=== PATIENT | female | born 1955 | race Caucasian/White ===

== ENCOUNTER 2017-09-22 09:25 | Emergency (ER) | payer OTHER ==
[~2017-09-22] VITALS: Ht 175.3 cm; Wt 72.6 kg
--- NOTE | 2017-09-22 09:30 | NUR ---
DR ROSALVA BLACKWELL AT PT BEDSIDE AT THIS TIME
[2017-09-22] MEDS ORDERED: ROSU40TA PO (09:32)
[2017-09-22] MEDS ORDERED: LOPRESSER ONE (09:34)
--- NOTE | 2017-09-22 09:36 | NUR ---
ARRIVAL PATIENT ARRIVED TO 2 AMBULATORY FOR THE RESPIRATORY DEPARTMENT, PATIENT WAS WORKING WHEN SHE BECAME SHORT OF BREATH AND HER HEART BEGAN TO RACE, HAD CO WORKER PERFOMR AND EKG, BROUGHT TO ED FOR FURTHER EVAL BY DOCTOR BLACKWELL.
[2017-09-22] MEDS ORDERED: LOPRESSER IVP STA (09:40)
--- NOTE | 2017-09-22 09:42 | PCM.EKG ---
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
[2017-09-22 10:02] LABS: BASOPHIL % 0.2 % (0.0-0.2); EOSINOPHIL % 0.6 % (0.0-5.0); HEMOGLOBIN 12.7 g/dL (12.0-15.0); LYMPHOCYTES # 1.9 10^3/uL (1.0-4.8); LYMPHOCYTES % 36.4 % (24.0-44.0); MEAN CELL HGB 31.8 pg (26-34); MEAN CELL HGB CONCENTRATION 33.5 g/dL (33-37); MONOCYTES # 0.6 10^3/uL (0.3-0.8); MONOCYTES % 10.8 % (5.0-12.0); NEUTROPHIL # 2.6 10^3/uL (1.8-7.7); RED CELL DISTRIBUTION WIDTH 12.6 % (11.5-14.5); WHITE BLOOD CELL 5.1 10^3/uL (4.5-11.0)
--- NOTE | 2017-09-22 10:02 | DIREP ---
PROCEDURE:CHEST 1 VIEW COMPARISON:None. INDICATIONS:SVT FINDINGS: LUNGS/PLEURA:No significant pulmonary parenchymal abnormalities. No effusions. VASCULATURE:Normal. Unremarkable pulmonary vasculature. CARDIAC:Normal. No cardiac silhouette abnormality or cardiomegaly. MEDIASTINUM:Normal. No visible mass or adenopathy. BONES:Normal. No fracture or visible bony lesion. OTHER:Bilateral breast implants CONCLUSION:No acute disease. Dictated by: Jose Gallegos MD on 09/22/2017 at 09:57 AM
--- NOTE | 2017-09-22 10:07 | PCM.EKG ---
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
[2017-09-22 10:28] LABS: ALANINE AMINOTRANSFERASE 20 U/L (12-78); ALKALINE PHOSPHATASE 78 U/L (50-136); ASPARTATE AMINO TRANSFERASE 17 U/L (0-35); CALCIUM 8.8 mg/dL (8.4-10.5); GLUCOSE 102 mg/dL (70-110)
[2017-09-22 10:57] LABS: CARBON DIOXIDE 22.6 mmol/L (20.0-32)
--- NOTE | 2017-09-22 11:05 | NUR ---
IV PT IV DCD WITH CATH IN TACT. NO COMPLICATIONS AND DRESSING APPLIED
[2017-09-22 11:06] VITALS: BP 126/70
--- NOTE | 2017-09-22 22:57 | HPH ---
ADMIT DATE: EMERGENCY ROOM LEVEL 4 CHIEF COMPLAINT: Rapid irregular heartbeat. 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 She presented to the ER with a rapid irregular heartbeat. She denied any history of any chest pain or any unusual shortness of breath. Her blood pressure was 150/100 mmHg. 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 Carotid massage initially it down, and subsequently, she did break into a regular sinus rhythm with sinus tachycardia with a rate of [address]-T wave changes were noted. Her blood pressure was 150/100 mmHg and was given metoprolol 5 mg IV followed by metoprolol tartrate 25 mg twice a day. Her lab data were all acceptable. No evidence of any chest pain and troponin was less than 0.02. Cardiac evaluation for an underlying ischemic substrate was considered, and she will have an echo and a Lexiscan done on September 23, 2017 in the hospital. ALLERGIES: NONE KNOWN. MEDICATIONS: The medications that she is on are Crestor 40 mg once a day, she is on Zoloft 100 mg once a day. PAST MEDICAL HISTORY: History of dyslipidemia, cholecystectomy, hysterectomy. No other major medical illnesses. SOCIAL HISTORY: She has about a 15-awtu-yhea history of smoking and moderate ethanol consumption with 3 to 4 hard liquor drinks a day and would be considered as moderate alcohol abuse. FAMILY HISTORY: Positive for hypertension. No other history of any significant coronary events in the family. PHYSICAL EXAMINATION: GENERAL: She is alert, awake, oriented. VITAL SIGNS: Her BMI was 23.6, weight 72 kilograms, pulse 150, 160, and subsequently 100 to 110 after her carotid was reverted back into regular sinus rhythm, blood pressure 150/100 mmHg, and respirations 18. HEENT: Unremarkable. NECK: No JVD and no carotid bruits. PULMONARY: The lungs showed poor air entry. HEART: S1 and S2 normal. Tachycardia noted. ABDOMEN: Soft and nontender. No organomegaly. EXTREMITIES: Distal pulses fairly well felt. LABORATORY DATA: Intact lab data, showed a normal CBC, 12.7 hemoglobin, electrolytes were normal, 157 ProBNP, and H. Pylori was negative. IMAGING STUDIES: Chest x-ray was unremarkable. IMPRESSION: Supraventricular tachycardia, AVNRT ST depression, Risk factors for CAD with severe dyslipidemia, hypertension, and 66-btit-vobk history of smoking. RECOMMENDATIONS: At this time, the patient will go home on metoprolol tartrate 25 mg twice a day, continue her Crestor 40 mg once a day. We will have an echo and a Lexiscan on September 23, 2017, along with a fasting lipid profile and a CRP, and we will see her back in the clinic. Laxmichand MD Yazmin DR: RAFAELA/cordell JOB# [id number] LIUDMILA
== END 2017-09-22 11:06 ==
LOC: ER 09:25
DX: I47.1 Supraventricular tachycardia (principal); E78.5 Hyperlipidemia, unspecified; Z87.891 Personal history of nicotine dependence
CPT/HCPCS: 36415; 71010; 80053; 82550; 82553; 83880; 84484; 85025; 85379; 85610; 86677; 93005 ×2; 96374; 99285; J3490

== ENCOUNTER → 2017-09-23 | Outpatient (CLI) | payer OTHER ==
[~2017-09-23] VITALS: Ht 172.7 cm; Wt 72.6 kg
[~2017-09-23] MED LIST: AMINOPHYLLINE IV ONE; LEXISCAN IV STA; ROSU40TA PO
--- NOTE | 2017-09-23 21:16 | STRESS ---
DATE OF SERVICE: EXERCISE AND LEXISCAN PERFUSION STUDY INDICATIONS: The patient is a 62-year-old female, height about 5 feet and 9 inches, weight approximately 170 pounds, with a history of hypertension, SVT, AVNRT, ST depression on 12-lead EKG during AVNRT, a 54-kykv-sdkx history of smoking, to assess for an ischemic substrate. Physical activity is normal. 12-LEAD EKG: Regular sinus rhythm, within normal limits, heart rate 57, resting heart rate 57. MEDICATIONS: Metoprolol 25 mg twice a day, Crestor 40 mg once a day, Zoloft 100 mg once a day, baby aspirin 81 mg once a day. PROCEDURE: The patient underwent 1 minute and 50 seconds on a regular Terry protocol and had a heart rate of 92, blood pressure 148/84 mmHg, and a complaint of marked dyspnea was given Lexiscan 0.4 mg IV over 15 seconds, had severe reactive airway component, and after injecting Cardiolite, reversal of side effects of Lexiscan was done with 100 mg of aminophylline IV. Resting images obtained with 11.58 mCi of Cardiolite. Post-Lexiscan images obtained with 31.7 mCi of Cardiolite injection. Abnormal myocardial perfusion scan with abnormal TID of 1.18 with small septal and apicoinferior hypoperfusion, and post-exercise and Lexiscan perfusion images with reperfusion noted, and rest images, LV ejection fraction of 63%, intact perfusion in the lateral wall and also in part of the anterior wall. IMPRESSION: She has a 04-mgit-dkeo history of smoking with dyslipidemia. In view of multiple risk factors with symptoms of SVT and ST depression during SVT of significant degree, suggests a cardiac catheterization to delineate the coronary anatomy. Laxmichand MD Yazmin DR: RAFAELA/cordell JOB# [id number] LIUDMILA
--- NOTE | 2017-09-28 18:24 | ECHO ---
DATE OF SERVICE: 09/23/2017 INDICATIONS: History of SVT, ST depression, hypertension. Assess for LV function. PRIMARY PHYSICIAN: Elaine Arce MD Mitral valve shows normal mitral valve opening, normal E:A ratio, normal aorta, normal aortic valve opening, mild tricuspid regurgitation, normal right ventricular size and mild right atrial enlargement and 4-chamber view to 4.28 cm and normal left atrial size. Left ventricle appears to be normal around 4.61 cm. End-diastolic dimension of 2.97 cm, end-systolic dimension with top normal wall thickness of posterior wall, no concentric left ventricular hypertrophy and normal LV contractility, 55% ejection fraction. IVC appears to be top normal size, slightly dilated; hence, no evidence of any significant LV systolic dysfunction except some IVC dilatation is noted. Elaine Arce MD DR: RAFAELA/cordell JOB# [id number]
== END | disposition home or self-care (01) ==
LOC: RAD 09:19
PROVIDERS: ATTEND Specialist
DX: I10 Essential (primary) hypertension (principal); I47.1 Supraventricular tachycardia
CPT/HCPCS: 78452; 93017; 93307; A9500; J0280; J2785

== ENCOUNTER → 2017-09-24 | Outpatient (CLI) | payer OTHER ==
[~2017-09-24] MED LIST changes: -AMINOPHYLLINE IV ONE; -LEXISCAN IV STA
[2017-09-26 07:32] LABS: CHOLESTEROL 200 mg/dL (120-240); HDL CHOLESTEROL 100 mg/dL (32-96)
== END | disposition home or self-care (01) ==
LOC: RT 10:49
PROVIDERS: ATTEND Specialist
DX: J44.9 Chronic obstructive pulmonary disease, unspecified (principal)
CPT/HCPCS: 36415; 80061; 86140; 94060

== ENCOUNTER 2017-09-30 02:28 | Day surgery (SDC) | payer OTHER ==
[2017-09-29 10:40] VITALS: BP 125/56
[2017-09-30] VITALS (19 sets, daily range): BP systolic 82–146; BP diastolic 48–79
[~2017-09-30] VITALS: Ht 180.3 cm; Wt 82.6 kg
[~2017-09-30 02:28] MED LIST changes: +ASPI-484 PO; +CETI10TA24 PO; +METO25TA4 PO; +SERT100T PO; +VARE1TAB20 PO
[2017-09-30] MEDS ORDERED: NS 1000ML 1,000 ML ONE ×2 (05:11→06:38)
[2017-09-30] MEDS ORDERED: VALIUM PO ONE (06:00)
[2017-09-30] MEDS ORDERED: NS 1000ML 1,000 ML IV SCH (06:00)
[2017-09-30] MEDS ORDERED: PHENERGAN PO ONE (06:00)
[2017-09-30] MEDS ORDERED: PHENERGAN ONE (06:20)
[2017-09-30] MEDS ORDERED: VALIUM ONE (06:20)
[2017-09-30] MEDS ORDERED: SUBLIMAZE ONE ×2 (06:38→12:41)
[2017-09-30] MEDS ORDERED: HEPARIN ONE ×2 (06:38→06:39)
[2017-09-30] MEDS ORDERED: XYLOCAINE ONE (06:39)
[2017-09-30] MEDS ORDERED: VERSED ONE (06:39)
[2017-09-30] MEDS ORDERED: NITROGLYCERIN 25MG/D5W 250ML 250 ML IV ONE (06:39)
[2017-09-30] MEDS ORDERED: APRESOLINE ONE (07:46)
[2017-09-30] MEDS ORDERED: EPINEPHRINE ONE (07:47)
[2017-09-30] MEDS ORDERED: NS FLUSH ONE (09:09)
--- NOTE | 2017-09-30 10:03 | [facility] ---
DATE OF SERVICE: 09/30/2017 PRECATHETERIZATION DIAGNOSES: Abnormal myocardial perfusion scan, SVT, AVNRT, hypertension on beta blockers, lipids normal, HDL of 100, 45-50 pack-year history of smoking. POSTCATHETERIZATION DIAGNOSES: Left main is a fair size vessel, fully patent, type 3 LAD fully patent, the LAD encircles the apex and distal terminal, small caliber of the vessel is noted. Circumflex is a fair size vessel, fully patent, small diminutive nondominant RCA patent, normal LV contractility, ejection fraction of 60%. ANESTHESIA: 2% lidocaine. PREOPERATIVE MEDICATIONS: Phenergan 50 mg p.o., Valium 2.5 mg p.o., Versed 2 mg IV, fentanyl 25 mcg IV. ANTICOAGULATION: Heparin 2000 units intra-arterially, 2000 units in the flush solution, 1000 units in the dye solution. Dye Omnipaque, total amount is 68 mL. CATHETERS: JL4 6-Macedonian, JR4 6-Macedonian, and 6-Macedonian angled pigtail catheter. ARTERIAL TIME: 5 minutes. FLUOROSCOPY TIME: 2.3 minutes. PROCEDURES: Left heart catheterization, bilateral selective coronary arteriography, left ventriculography via right femoral Mohsen approach. NARRATION OF PROCEDURE: Under local anesthesia, the right femoral artery was punctured using open needle technique, and 6-Macedonian Cordis sheath was introduced into the femoral artery. Side port of the sheath was used for continuous monitoring of femoral arterial pressure. Subsequently, JL4 6-Macedonian left Mohsen coronary catheter was introduced over a guidewire and navigated across the ascending aorta, and selective cannulation of left coronary artery was achieved. Left coronary arteriography was performed in DOMINICAN and CASTORENA projections using craniocaudal angulations for adequate visualization of all the branches. This catheter was then exchanged with JR4 6-Macedonian right coronary catheter which was manipulated, and selective cannulation of right coronary artery was achieved. Right coronary arteriography was performed in DOMINICAN and AP projections. Right coronary catheter was then exchanged with 6-Macedonian angled pigtail catheter which was navigated across the aortic valve. Hemodynamics were measured, and left ventriculography was performed in 30-degree CASTORENA projection using 35 mL of Isovue at 12 mL/sec at 600 PSI. Patient tolerated the procedure well. HEMODYNAMICS: LVEDP is 15 mm, LV pressure 120/15. Femoral artery pressure 134/52 with a mean of 70. No gradient across the aorta. FINAL CONCLUSION: Normal coronary angiogram, diminutive right coronary artery, AVNRT, hypertension, history of smoking, COPD, reactive airway component. RECOMMENDATIONS: Continue Breo Ellipta 1 puff daily, stop smoking, metoprolol 25 mg twice a day, aspirin 81 mg once a day and will make arrangements with Dr. Oliveros for ablation of AVNRT. Laxmichand MD Yazmin DR: RAFAELA/cordell JOB# [id number]
[2017-09-30] MEDS ORDERED: NORCO 5MG PO ONE ×2 (11:20→11:23)
[2017-09-30] MEDS ORDERED: SUBLIMAZE IV ONE (12:30)
[2017-09-30] MEDS ORDERED: SUBLIMAZE IM ONE (12:40)
== END 2017-09-30 14:00 | disposition home or self-care (01) ==
LOC: SDC 02:28
PROVIDERS: ATTEND Specialist
DX: I47.1 Supraventricular tachycardia (principal); E78.00 Pure hypercholesterolemia, unspecified; E78.5 Hyperlipidemia, unspecified; J44.9 Chronic obstructive pulmonary disease, unspecified; E66.3 Overweight; Z68.25 Body mass index [BMI] 25.0-25.9, adult; Z85.820 Personal history of malignant melanoma of skin; Z90.710 Acquired absence of both cervix and uterus; Z90.49 Acquired absence of other specified parts of digestive tract; Z98.890 Other specified postprocedural states; Z79.899 Other long term (current) drug therapy; Z87.891 Personal history of nicotine dependence; F10.10 Alcohol abuse, uncomplicated; Z82.49 Family history of ischemic heart disease and other diseases of the circulatory system
CPT/HCPCS: 93458; 99152; C1894 ×3; J0171; J0360; J1644 ×3; J2250; J3010 ×2; J3490; J7030 ×3; Q9967

== ENCOUNTER → 2021-07-13 | Day surgery (SDC) | payer MEDICARE ==
[2021-07-10 10:37] VITALS: BP 128/76
--- NOTE | 2021-07-10 11:36 | DIREP ---
PROCEDURE:CHEST 2 VIEWS COMPARISON:[facility], CR, XRAY CHEST SINGLE VW, 09/22/2017, 09:41 AM. INDICATIONS:PRE-OP HEART CATH, ABNORMAL STRESS TEST FINDINGS: LUNGS/PLEURA:There is pulmonary hyperinflation consistent with underlying COPD. No focal consolidation. No effusions. VASCULATURE:Normal. Unremarkable pulmonary vasculature. CARDIAC:Normal. No cardiac silhouette abnormality or cardiomegaly. MEDIASTINUM:Normal. No visible mass or adenopathy. BONES:Mild ventral spondylosis of the thoracic spine OTHER:Bilateral breast implants CONCLUSION:Emphysema. No active cardiopulmonary disease process Dictated by: Carlo Reyes M.D. on 07/10/2021 at 11:33 AM
[~2021-07-13] VITALS: Ht 180.3 cm; Wt 77.1 kg
[2021-07-13] VITALS (9 sets, daily range): BP systolic 130–171; BP diastolic 64–97
[~2021-07-13] MED LIST changes: -ASPI-484 PO; +ASPI-485 PO; -CETI10TA24 PO; +CETI10TA77 PO; +ESTR5VIA IM; +HEPARIN ONE; +LOSA50TA14 PO; +METO50TA6 PO; +NS 1000ML 1,000 ML IV SCH; +PHENERGAN PO ONE; +SUBLIMAZE ONE; +VALIUM PO ONE; +VERSED ONE; +XYLOCAINE ONE
--- NOTE | 2021-07-13 22:51 | [facility] ---
DATE OF SERVICE: 07/13/2021 DICTATOR NAME: Elaine Arce MD HEART CATHETERIZATION REPORT IDENTIFICATION: A 65-year-old female. PRECATHETERIZATION DIAGNOSES: Abnormal myocardial perfusion scan with a TID of 1.49 with mild global reperfusion abnormality in a vertical long axis view with history of heavy smoking. Preoperative cardiovascular evaluation before undertaking metastatic cancer surgery with mets in the liver and history of abdominal cancer, needs surgery, history of hypertension, hypertensive heart disease, history of premature ventricular contractions. POSTCATHETERIZATION DIAGNOSES: Small caliber left main fully patent. LAD is tortuous and small caliber fully patent. No flow obstruction documented. Circumflex dominant system, fully patent. Small diminutive right coronary artery fully patent. Left ventricle is normal in size with mild global hypokinesis, ejection fraction of 48%. ANESTHESIA: 2% lidocaine. PREOPERATIVE MEDICATIONS: Phenergan 50 mg p.o., Valium 2.5 mg p.o., fentanyl 50 mcg IV, Versed 1 mg IV. ANTICOAGULATION: Heparin 2000 units intra-arterially, 2000 units in the flush solution, 1000 units in dye solution. DYE USED: Omnipaque. Total amount of dye used 65 mL. CATHETERS: JL4 6-Angolan, JR4 6-Angolan, 6 Angolan angled pigtail catheter. ARTERIAL TIME: 6 minutes. FLUOROSCOPY TIME: 1.7 minutes. PROCEDURE: Left heart catheterization, bilateral selective coronary arteriography, left ventriculography by right femoral Mohsen approach. DESCRIPTION OF PROCEDURE: Under local anesthesia, right femoral artery was punctured percutaneously by arterial needle, guide wire passed in right femoral artery, 6-Angolan Cordis sheath introduced, side port of the sheath used for femoral arterial pressure monitoring. Sheath anchored with suture. Left Mohsen catheter introduced over guide wire into ascending aorta left coronary artery cannulated and left coronary angiography performed in GAMBIAN and CASTORENA projections with craniocaudal applications to visualize all branches. Left catheter exchanged for right coronary catheter and right coronary angiography performed in GAMBIAN and CASTORENA. This catheter exchanged for 6-Angolan pigtail catheter and catheter crossed the aortic valve and left ventricular LVEDP measured and LV gram performed in 30 degrees CASTORENA view with 30 mL Omnipaque dye and panning of descending aorta attempted. Patient tolerated procedure well. No complications of procedure. Angio-Seal deployed for hemostasis. LVEDP is 10-15 mm, LV pressure is 120/15, femoral artery pressure 140/56. No gradient across the aorta on pullback of the central catheter. FINAL CONCLUSION: No flow obstructive coronary artery disease, hypertension, hypertensive heart disease, premature ventricular contractions, risk factors of coronary artery disease. RECOMMENDATIONS: Risk factor management. Advised low cardiac risk for cancer surgery at the present time under anesthesia. Elaine Arce MD DR: BONILLA TID: [id number] RECEIPT: [id number]
== END | disposition home or self-care (01) ==
LOC: SDC 07:55
PROVIDERS: ATTEND Specialist
DX: I25.10 Atherosclerotic heart disease of native coronary artery without angina pectoris (principal); I47.1 Supraventricular tachycardia; I11.0 Hypertensive heart disease with heart failure; R63.4 Abnormal weight loss; I50.32 Chronic diastolic (congestive) heart failure; J44.9 Chronic obstructive pulmonary disease, unspecified; Z87.891 Personal history of nicotine dependence; Z98.890 Other specified postprocedural states; Z79.01 Long term (current) use of anticoagulants; Z85.51 Personal history of malignant neoplasm of bladder; Z85.118 Personal history of other malignant neoplasm of bronchus and lung; Z90.49 Acquired absence of other specified parts of digestive tract; Z90.710 Acquired absence of both cervix and uterus; Z98.51 Tubal ligation status; Z90.722 Acquired absence of ovaries, bilateral; Z82.49 Family history of ischemic heart disease and other diseases of the circulatory system; Z80.52 Family history of malignant neoplasm of bladder; Z68.23 Body mass index [BMI] 23.0-23.9, adult; Z79.899 Other long term (current) drug therapy
CPT/HCPCS: 36415; 71046; 85610; 85730; 93458; 99152; C1760; C1894 ×3; J1644 ×2; J2250; J3010; Q9967

== ENCOUNTER → 2024-12-26 | Outpatient (CLI) | payer MEDICARE ==
[~2024-12-26] MED LIST changes: -HEPARIN ONE; -NS 1000ML 1,000 ML IV SCH; -PHENERGAN PO ONE; -SUBLIMAZE ONE; -VALIUM PO ONE; -VERSED ONE; -XYLOCAINE ONE
== END | disposition home or self-care (01) ==
LOC: RAD 09:16
PROVIDERS: ATTEND Specialist
DX: I07.1 Rheumatic tricuspid insufficiency (principal); I11.0 Hypertensive heart disease with heart failure; I50.32 Chronic diastolic (congestive) heart failure; I25.10 Atherosclerotic heart disease of native coronary artery without angina pectoris; R94.31 Abnormal electrocardiogram [ECG] [EKG]; R06.02 Shortness of breath; J44.89 Other specified chronic obstructive pulmonary disease; R07.89 Other chest pain
CPT/HCPCS: 78452; 93306; J2785; A9500; J0280